=== PATIENT | male | born 1940 | race Caucasian/White ===

== ENCOUNTER → 2017-07-05 10:02 | Outpatient (CLI) | payer MEDICARE, SELFPAY | PROVIDERS: Family Provider Family Medicine; PCP Family Medicine; Visit Provider Family Medicine | DX: R10.13 Epigastric pain (principal) ==

== ENCOUNTER 2018-04-29 08:51 | Emergency (ER) | payer MEDICARE, SELFPAY ==
[2018-04-29 08:53] VITALS: BP 147/91; PULSE 95; RESP 18; TEMP 36.6; BMI 20.9
[2018-04-29 09:11] LABS: Bacteria 0 SEEN /hpf (None Seen); Mucous, Urine 0 SEEN /hpf (<or=2+); Squamous Epithelial Cells - UA 0 SEEN /hpf (0-5); White Blood Cells 0 SEEN /hpf (0-5)
[2018-04-29 09:14] LABS: Color, Urine Yellow (Yellow); Glucose, Dipstick Normal (Normal); Ketone-Dipstick Negative (Negative); Leukocyte Esterase-Dipstick Negative /ul (Negative); Nitrite-Dipstick Negative (Negative); Occult Blood-Urine 150 /ul (Negative); Protein-Dipstick Negative (Negative); Urine Bilirubin Dipstick Negative (Negative); Urine Clarity Sl. Cloudy (Clear); Urine Urobilinogen Normal (Normal)
[2018-04-29 09:21] LABS: Amorphous Sediment 1+; Red Blood Cells-Urine 10-25 SEEN /hpf (0-5)
--- NOTE | 2018-04-29 09:36 | ED.VISSUMM ---
- ER Visit Summary Date of Service: 04/29/18 Chief Complaint: Urine retention History of Present Illness: The patient is a 77 M who has not urinated since yesterday evening. He does have a history of enlarged prostate. Does not take medications. History of prostate or other surgeries. No recent bleeding. No dysuria, frequency, or urgency. No fevers or back pain. No GI symptoms. Physical Examination: Afebrile and vital signs unremarkable. Patient appears uncomfortable. Suprapubic region tender to palpation. No guarding or rebound. exam shows normal inspection. Test Results: Urinalysis unremarkable. Emergency Department Course and Treatment: Will catheter was placed by nursing on arrival. The patient passed copious yellow and clear urine and no blood or clots were noted. The patient had resolution of his symptoms. Urinalysis unremarkable. I suspect the symptoms are related to the patient's enlarged prostate history. He was placed on Flomax and referred to urology for follow-up. Return for any new or worsening issues. Treatment Plan: As above Disposition: Discharge Impression: 1. Acute urinary retention This note was generated with [employer] dictation software. It may contain incorrect words, spelling, and punctuation that were not noted in review of the chart prior to signing ED Disposition - Plan for ED Patient: Chief Complaint: Complaint Referrals: Fish Ferris DO [Primary Care Provider] -
--- NOTE | 2018-04-29 09:38 | ED.DEP ---
ED Disposition - Plan for ED Patient: Chief Complaint: Complaint Instructions: ED Catheter Care Will Prescriptions: Tamsulosin HCl [Flomax] 0.4 mg PO DAILY #7 cap Referrals: Dallas Key MD [STAFF PHYSICIAN] -
--- NOTE | 2018-04-29 09:52 | ED.RN ---
DISCHARGE INSTRUCTIONS GIVEN TO AND REVIEWED WITH PATIENT, PATIENT DENIES QUESTIONS OR CONCERNS AND VOICES UNDERSTANDING OF DISCHARGE INSTRUCTIONS. PT AMBULATES OUT OF ROOM WITHOUT DIFFICULTY.
== END 2018-04-29 09:53 | disposition home or self-care (01) ==
PROVIDERS: Emergency Provider Emergency Medicine; Family Provider Family Medicine; PCP Family Medicine
DX: R33.9 Retention of urine, unspecified (principal); E03.9 Hypothyroidism, unspecified; N40.0 Benign prostatic hyperplasia without lower urinary tract symptoms
CPT/HCPCS: 51702; 81001; 99283; J7030

== ENCOUNTER → 2018-04-30 15:42 | Outpatient (CLI) | payer MEDICARE, SELFPAY ==
[2018-04-29 08:53] VITALS: BMI 20.9
[2018-04-30 18:25] LABS: Free T3 1.6 pg/mL (2.18-3.98); T4 Free Direct 0.86 ng/dL (0.76-1.46)
== END ==
PROVIDERS: Family Provider Family Medicine; PCP Family Medicine; Visit Provider Family Medicine
DX: E03.9 Hypothyroidism, unspecified (principal)
CPT/HCPCS: 36415; 84439; 84443; 84481

== ENCOUNTER → 2018-05-09 06:54 | Outpatient (CLI) | payer MEDICARE, SELFPAY ==
[2018-04-29 08:53] VITALS: BMI 20.9
--- NOTE | 2018-05-09 06:59 | CT_ITS ---
STUDY: CT ABDOMEN AND PELVIS WITHOUT CONTRAST REASON FOR EXAM: Male, 77 years old. Urinary retention. Prostate enlargement. RADIATION DOSAGE (If Supplied By Facility): CTDIvol = ( 6.12 ) mGy, DLP = ( 301.25 ) mGycm TECHNIQUE: Transaxial images were obtained from the dome of the diaphragm to the symphysis pubis without oral contrast, and without intravenous contrast. Sagittal and coronal images were reconstructed. Individualized dose optimization techniques were used for this CT. COMPARISON: None. FINDINGS: Minimal increased markings along the posterior-lateral aspect of the right lower lobe suggestive of a atelectasis and/or scarring. There is a 2.8 cm x 2 cm bulla in the anterior medial aspect of the right lower lobe. The visualized portions of the heart are within normal limits. Normal liver. Normal gallbladder and extrahepatic biliary system. Normal spleen. Normal pancreas. Normal bilateral adrenal glands. Normal right kidney. Normal left kidney. There is a left retrocrural aortic renal vein. Normal visualized stomach. Normal small intestine. Normal colon. The appendix is visualized and appears normal. There is diffuse atherosclerotic calcification of the abdominal aorta, without a demonstrated aneurysm. Normal inferior vena cava. Normal retroperitoneum. Distended urinary bladder. A Will catheter is seen within the bladder. Diffuse bladder wall thickening. There is enlargement of the prostate. This measures 6.7 cm x 7.3 cm. Small bilateral inguinal hernias containing fat. There are degenerative changes of the visualized lumbar spine. CT/Abdomen/Pelvis without Cont IMPRESSION: Mildly enlarged prostate. Diffuse bladder wall thickening. Electronically Signed: August Puga MD at 13:08 EST Tel [phone], Service support ,
== END ==
PROVIDERS: Family Provider Family Medicine; PCP Family Medicine; Referring Provider Urology; Visit Provider Urology
DX: R33.8 Other retention of urine (principal); N40.1 Benign prostatic hyperplasia with lower urinary tract symptoms
CPT/HCPCS: 74176

== ENCOUNTER → 2018-05-14 10:33 | Outpatient (CLI) | payer MEDICARE, SELFPAY ==
[2018-04-29 08:53] VITALS: BMI 20.9
[2018-05-14 11:22] VITALS: BP 141/68; PULSE 81; RESP 16; TEMP 36.8; O2SAT 100; BMI 20.2
--- NOTE | 2018-05-14 16:04 | SDCEKG_ITS ---
Test Reason : Blood Pressure : / mmHG Vent. Rate : 074 BPM Atrial Rate : 074 BPM P-R Int : 140 ms QRS Dur : 092 ms QT Int : 400 ms P-R-T Axes : 080 013 064 degrees QTc Int : 444 ms Normal sinus rhythm Normal ECG Confirmed by FELISA SANDOVAL, LAI ([id number]), photographic editor STEVEN JACKSON ([id number]) on 05/18/2018 1:39:47 PM Referred By: Dallas Key Confirmed By:LAI ROBERTO MD
== END ==
PROVIDERS: Family Provider Family Medicine; PCP Family Medicine; Referring Provider Urology; Visit Provider Urology
DX: Z01.810 Encounter for preprocedural cardiovascular examination (principal)
CPT/HCPCS: 93005

== ENCOUNTER 2018-06-15 10:04 | Inpatient (IN) | payer MEDICARE, SELFPAY ==
[2018-05-15 15:49] VITALS: BMI 20.9
[2018-06-09 10:57] LABS: Mean Corp Hgb Conc 28.1 g/gl (32-36); Mean Corpuscular Volume 74.6 fL (80-94); Mean Platelet Vol. 10.5 fl (6.2-12.0); Platelet Count 454 K/mm3 (150-450); RBC Distribution Width CV 16.5 % (11.6-14.6); RBC Distribution Width SD 44.9 fl (35.1-43.9); Red Blood Count 4.29 M/mm3 (4.6-6.2); White Blood Count 11.9 K/mm3 (4.4-11.0)
[2018-06-09 10:59] LABS: Scan Indicated on CBC? Y/N YES- FLAGS NOTED
[2018-06-09 11:29] LABS: Thyroid Stim Hormone (TSH) 2.14 uIU/mL (0.358-3.74)
[2018-06-09 11:30] LABS: Differential Comment SCANNED
[2018-06-15] VITALS (17 sets, daily range): BP systolic 109–156; BP diastolic 56–76; PULSE 76–91; RESP 14–18; TEMP 36.2–37.2; O2SAT 93–99
--- NOTE | 2018-06-15 12:00 | PROST_PTH ---
PATIENT: DEEPTI CABRAL LOC: [facility] U#:[id number] AGE/SX: 77/M ROOM: [facility]324 RE06/15/[address]: Dr. Dallas Key MD : [id number] BED: 1 DIS: 06/18/2018 SPEC #: [id number] RECD: 06/15/18 16:04 STATUS: JOHNNY KATERIN #: [id number] JONATHAN: 06/15/18 12:[address]: Dallas Key DEPT: SURGICAL PATHOLOGY RECD BY: Enoch Luis ENTERED: 06/18/18 10:14 SP TYPE: PROSTATE OTHR DR: Dr. Fish Ferris, DO Tissues: Prostate, NOS Procedures: Surgery Specimen Level HEADER OPERATION: Laparoscopic robotic simple prostatectomy PRE-OP DIAGNOSIS: Benign prostatic hyperplasia with lower urinary tract symptoms, elevated prostate specific antigen, retention of urine TISSUE SUBMITTED: Prostate tissue MICROSCOPIC DIAGNOSIS Prostate, simple prostatectomy: Benign nodular hyperplasia, glandular and stromal types. Mild chronic inflammation. No evidence of malignancy. AM:howie 06/19/18 MICROSCOPIC DESCRIPTION Slides are reviewed. GROSS DESCRIPTION Received in fixative is one container labeled with the patient's name and designated prostate tissue. The specimen consists of a morcellated prostatic tissue (greater than 30 fragments) measuring in aggregate 12 x 12 x 4 cm and weighing 46 gm. Tissue grossly resembling seminal vesicles or vas deferens is not identified. Sections reveal lobulated white, rubbery cut surfaces. No distinct mass lesion is identified. Leather Belt Shaper sections are submitted in eight cassettes. / AM:howie 06/18/18 TC:5 CPT: 02636
[2018-06-15] MEDS: Cefazolin 2 GM in 0.9% Normal Saline 100 ML IV (12:31)
[2018-06-15] MEDS: Bupivacaine Mpf 0.5% 30 ML VIAL (15:43)
--- NOTE | 2018-06-15 15:51 | OP.PCM_ITS ---
Report of Operation Date of Procedure: 06/15/18 Pre-Operative Diagnosis: BPH with obstruction and urinary retention Post-Operative Diagnosis: Same Surgery/Procedure Performed:: Laparoscopic assisted robotic simple prostatectomy Description of Surgical Findings:: Indication this is a 77-year-old male has a prostate prior greater than 100 g in size very large obstructive prostate with a very large protruding prostate into the bladder he is developed urinary retention at this point been managed with a Will catheter he is on antibiotics for recent urinary tract infection today we plan to taken to surgery for a simple robotic assisted enucleation prostatectom 77-year-old male taken back to the operating room at the smooth induction of general anesthesia he was placed supine on the table the abdomen was shaved prepped and draped in usual sterile fashion made an incision above the umbilicus put a Veress needle into the peritoneal cavity and into inflated the peritoneum with CO2 gas I then placed my robot trocar right arm trocar left arm trocar variceal port and special education educational assistant trocar and suction trocar. Started off by inflating the bladder with 200 cc open up the bladder in the midline I then placed a Theodore needle through the lower abdomen to retract the bladder laterally open of the bladder some more I then identified a very large protruding prostate into the bladder went below this identify the right and left ureteral orifice cir cumferentially incised the bladder muscle attachments to the adenoma and then started off with the enucleation of the adenoma had a very large adenoma mostly on the right side compressing the urethra at the majority the large adenoma out significant some bleeding during this process and then as I piecemealed out the adenoma is a cath on bringing out more and more tissue until finally got to the base of the prostate had enucleated out all the adenomatous tissue from the prostate I then can perform the anastomosis running the suture from the urethra to the edges of the bladder mucosa bring down the bladder mucosa to the mucosa to the urethra this allowed the mucosa to come over the edges and also to prevent scar tissue from forming he had a nice wide open channel we then placed a 20 Frisian catheter into the bladder with 10 cc in the balloon and then we closed the bladder in 2 layers with 2-0 and 3-0 Vicryl after closing the bladder we then extracted the prostate adenoma through the Endo Catch bag through the umbilicus and then we closed our Sandro Caballero stitch of the 1012 trocar and then all the second particular stitches were closed incisions and dressings were placed patient's anesthetic was reversed I went spoke to the and let her know that the surgery was completed and the patient's catheter was irrigated and is taken back to the PACU good condition. Type of Anesthesia:: General Drains: NONE - Admit VTE Documentation VTE Present on Admission: No VTE Mechan Device Prophylaxis: SCD's
[2018-06-15 16:27] LABS: Hematocrit 26.3 % (40-54); Hemoglobin 7.5 g/dl (13.0-16.5); Mean Corp Hgb Conc 28.5 g/gl (32-36); Mean Corpuscular Hgb 21.1 pg (27.0-32.0); Mean Corpuscular Volume 74.1 fL (80-94); Platelet Count 399 K/mm3 (150-450); RBC Distribution Width CV 16.5 % (11.6-14.6); RBC Distribution Width SD 44.8 fl (35.1-43.9); Red Blood Count 3.55 M/mm3 (4.6-6.2); Scan Indicated on CBC? Y/N YES- FLAGS NOTED; White Blood Count 21.9 K/mm3 (4.4-11.0)
[2018-06-15 16:34] LABS: Anion Gap 9 (5-15); BUN 15 mg/dL (7-18); BUN/Creat Ratio 18.3 RATIO (10-20); Calcium,Total 7.4 mg/dL (8.5-10.1); Chloride 112 mmol/L (98-107); Creatinine, Serum 0.82 mg/dL (0.70-1.30); EST Glomerular Filtration Rate 97 mL/min (>60); Est Glom Filt Rate - Afr Amer 118 mL/min (>60); Estimated Creatinine Clearance 72.74 ml/min; Glucose 166 mg/dL (74-106); Potassium 4.3 mmol/L (3.5-5.1); Sodium Level 143 mmol/L (136-145)
--- NOTE | 2018-06-15 16:45 | PCM.PN.BLA ---
Progress Note patient started out with low Hgb. now post op 7.5 will need two units of PRBC. will transfuse.
[2018-06-15] MEDS: Ketorolac 15 MG/ML Vial IV ×2 (19:07→23:46)
[2018-06-15] MEDS: 0.45% Normal Saline 1,000 ML 150 ML IV (19:11)
[2018-06-15] MEDS: Cefazolin 1 GM/50 ML BAG IV (19:37)
[2018-06-15] MEDS: Docusate Sodium 100 MG Capsule PO (21:12)
[2018-06-16 03:05] VITALS: BP 143/73; PULSE 87; RESP 18; TEMP 36.6; O2SAT 99
[2018-06-16] MEDS: 0.45% Normal Saline 1,000 ML 150 ML IV ×4 (03:47→22:52)
[2018-06-16] MEDS: Cefazolin 1 GM/50 ML BAG IV (05:08)
[2018-06-16] MEDS: Ketorolac 15 MG/ML Vial IV ×4 (05:09→23:02)
[2018-06-16] MEDS: Morphine 2 MG/ML Syringe IV ×3 (05:20→13:52)
[2018-06-16 06:59] LABS: Hematocrit 28.7 % (40-54); Hemoglobin 8.6 g/dl (13.0-16.5); Mean Corpuscular Hgb 22.9 pg (27.0-32.0); Mean Corpuscular Volume 76.3 fL (80-94); Mean Platelet Vol. 10.7 fl (6.2-12.0); Platelet Count 362 K/mm3 (150-450); RBC Distribution Width CV 17.8 % (11.6-14.6); RBC Distribution Width SD 46.7 fl (35.1-43.9); Red Blood Count 3.76 M/mm3 (4.6-6.2); White Blood Count 14.5 K/mm3 (4.4-11.0)
[2018-06-16 07:00] LABS: Scan Indicated on CBC? Y/N NO
[2018-06-16 07:13] LABS: Anion Gap 7 (5-15); BUN 14 mg/dL (7-18); BUN/Creat Ratio 15.8 RATIO (10-20); Calcium,Total 7.2 mg/dL (8.5-10.1); Chloride 111 mmol/L (98-107); Creatinine, Serum 0.88 mg/dL (0.70-1.30); EST Glomerular Filtration Rate 89 mL/min (>60); Est Glom Filt Rate - Afr Amer 107 mL/min (>60); Estimated Creatinine Clearance 67.78 ml/min; Glucose 103 mg/dL (74-106); Potassium 4.7 mmol/L (3.5-5.1); Sodium Level 144 mmol/L (136-145)
[2018-06-16 08:40] VITALS: BP 120/68; PULSE 73; RESP 18; TEMP 37.2; O2SAT 98
[2018-06-16] MEDS: Docusate Sodium 100 MG Capsule PO (08:46)
[2018-06-16] MEDS: Magnesium Hydroxide 30 ML UDC 15 ML PO (08:50)
[2018-06-16] MEDS: Pantoprazole Sodium 20 MG Tablet PO (08:50)
--- NOTE | 2018-06-16 08:50 | PCM.PROGNOTE ---
Subjective: doing well had 2 units of blood post op not from bleeding, really started very low H/h b/f surgery - Physical Exam Vital Signs Temp Pulse Resp BP Pulse Ox 99.0 F 73 18 120/68 98 06/16/18 08:40 06/16/18 08:40 06/16/18 08:40 06/16/18 08:40 06/16/18 08:40 Oxygen Delivery Method Room Air Weight: 67.1 kg Body Mass Index (BMI) 20.0 Intake and Output for Last 24 Hours 06/14/18 06/15/18 06/16/18 23:59 23:59 23:59 Intake Total 3400 / 3400 1842 / 1842 Output Total 450 / 450 1425 / 1425 Balance 2950 / 2950 417 / 417 Laboratory Tests Past 24 Hrs 06/15/18 06/15/18 06/15/18 10:36 10:36 16:15 WBC 21.9 H RBC 3.55 L Hgb 7.5 L Hct 26.3 L MCV 74.1 L MCH 21.1 L MCHC 28.5 L RDW 16.5 H RDW Differential 44.8 H Plt Count 399 MPV 10.0 Differential Comment Sodium Potassium Chloride Carbon Dioxide Anion Gap BUN Creatinine Estim Creat Clear Calc Est GFR (MDRD) Af Amer Est GFR (MDRD) Non-Af BUN/Creatinine Ratio Glucose Calcium Blood Type O POSITIVE Antibody Screen NEGATIVE Crossmatch See Detail 06/15/18 06/16/18 06/16/18 16:15 06:30 06:30 WBC 14.5 H RBC 3.76 L Hgb 8.6 L Hct 28.7 L MCV 76.3 L MCH 22.9 L MCHC 30.0 L RDW 17.8 H RDW Differential 46.7 H Plt Count 362 MPV 10.7 Differential Comment Sodium 143 144 Potassium 4.3 4.7 Chloride 112 H 111 H Carbon Dioxide 22.0 26.0 Anion Gap 9 7 BUN 15 14 Creatinine 0.82 0.88 Estim Creat Clear Calc 72.74 67.78 Est GFR (MDRD) Af Amer 118 107 Est GFR (MDRD) Non-Af 97 89 BUN/Creatinine Ratio 18.3 15.8 Glucose 166 H 103 Calcium 7.4 L 7.2 L Blood Type Antibody Screen Crossmatch Medical Necessity - Tobacco Use Smoking Status: Former smoker Assessment/Plan doing well ambulate diet as robert home on monday
[2018-06-16] MEDS: 0.9% NaCl Peripheral Flush Adult/Peds IV ×5 (09:06→23:02)
[2018-06-16] MEDS: Ondansetron 4 MG/2 ML Vial IV (10:16)
--- NOTE | 2018-06-16 11:20 | NURSING ---
PTS PENIS SWOLLEN SINCE 0900 WITH LAST TREVINO FLUSH. DR MULLEN NOTIFIED. ORDERED TO ELEVATE/MONITOR SWELLING. ALSO NOTIFIED MD OF PT C/O GAS PAINS, ATTEMPTED TO AMBULATE BUT BECAME NAUSEATED W/EMESIS. NEW ORDER FOR DULCOLAX SUPP X1.
[2018-06-16] MEDS: Bisacodyl 10 MG Suppository RECTAL (11:47)
[2018-06-16 13:45] VITALS: BP 130/68; PULSE 72; RESP 18; TEMP 37; O2SAT 98
[2018-06-16 19:57] VITALS: BP 115/67; PULSE 88; RESP 18; TEMP 36.9; O2SAT 97
[2018-06-17 03:20] VITALS: BP 114/55; PULSE 67; RESP 16; TEMP 36.9; O2SAT 96
[2018-06-17] MEDS: 0.45% Normal Saline 1,000 ML 150 ML IV (05:06)
[2018-06-17] MEDS: Ketorolac 15 MG/ML Vial IV ×3 (05:08→18:21)
[2018-06-17] MEDS: 0.9% NaCl Peripheral Flush Adult/Peds IV ×3 (05:09→18:21)
[2018-06-17] MEDS: Pantoprazole Sodium 20 MG Tablet PO (10:10)
[2018-06-17 10:26] VITALS: BP 123/49; PULSE 72; RESP 18; TEMP 36.9; O2SAT 100
[2018-06-17 16:24] VITALS: BP 114/64; PULSE 64; RESP 18; TEMP 37; O2SAT 100
[2018-06-17 20:14] VITALS: BP 105/53; PULSE 75; RESP 16; TEMP 36.9; O2SAT 96
[2018-06-18] MEDS: 0.9% NaCl Peripheral Flush Adult/Peds IV ×2 (00:07→06:03)
[2018-06-18] MEDS: Ketorolac 15 MG/ML Vial IV ×2 (00:07→06:03)
[2018-06-18 02:22] VITALS: BP 115/66; PULSE 71; RESP 16; TEMP 36.9; O2SAT 97
[2018-06-18 07:25] VITALS: BP 140/69; PULSE 68; RESP 18; TEMP 37.2; O2SAT 100
--- NOTE | 2018-06-18 07:28 | PCM.DC.URO ---
Discharge Diet: Light diet - advance as tolerated Discharge Activity: May Not Drive Call your doctor if your incision/area has: Continuous Slow Oozing, Sudden Increased Bleeding, Increased Pain/ Swelling, Increased Redness, Foul Smelling Discharge, Swelling at the incision site Call your doctor if you observe: Fever of 101 or Higher Additional Instructions: keep taking antibiotics. Allergies/Adverse Reactions: Allergies Penicillins Allergy (Verified 06/08/18 13:13) Unknown REDNEES AT INJECTION SITE, RASH Medications to take at Discharge Levothyroxine Sodium [Synthroid] 150 mcg PO DAILY 04/29/18 Ascorbic Acid [Vitamin C] 500 mg PO DAILY@0800 05/14/18 Cholecalciferol (VIT D3) [Vitamin D] 5,000 unit PO DAILY 05/14/18 Cyanocobalamin [Vitamin B12] 500 mcg PO DAILY@0800 05/14/18 Iodine/Potassium Iodide [Lugols] 15 ml TOPICAL DAILY 05/14/18 [place] Gum 1 tab PO DAILY 05/14/18 Multivitamins,Therapeutic [Multivitamin] 1 tablet PO DAILY 05/14/18 Prostamax 1 tab PO DAILY 05/14/18 [place] Prostate Health Formul 1 tab PO DAILY 05/14/18 Docusate Sodium [Colace] 100 mg PO BID #20 cap 06/18/18 Hydrocodone/Acetaminophen [[place] 5-325 Tablet] 1 ea PO Q4H PRN PRN 5 Days #14 tab 06/18/18 Orders to be completed after discharge: CBC-Complete Blood Cnt No Diff Time Frame: 06/08/18, Location: Laboratory Thyroid Stim Hormone (TSH) Time Frame: 06/08/18, Location: Laboratory Primary Care Physician: Fish Ferris DO [Primary Care Provider] - Test Results: Test results from this visit will be discussed in further detail at your follow-up appointment, if applicable. Please Follow Up With: Dallas Key MD When: please call to make an appointment- next monday to get catheter out.
--- NOTE | 2018-06-18 07:32 | DS.PCM_ITS ---
Discharge Date and Diagnosis Date of Admission: 06/15/18 Date of Discharge: 06/18/18 Hospital Course and Treatment Operations: - - simple prostatectomy Procedures: None Summary of Care Provided: The patient is a 77 year old male with BPH and retention s/p simple prostatectomy, in [facility] mostly for weather home with poole, follow up in 1 week. - Physical Exam General: Alert, Oriented x3, Cooperative HEENT: Atraumatic, PERRLA, EOMI, Normocephalic Neck: Supple, No JVD, Negative Carotid Bruits Lungs: Clear to auscultation, Normal air movement Cardiovascular: Regular rate, No murmurs Abdomen: Bowel Sounds Present, Soft, Non Tender Extremities: No edema, Capillary Refill Less than 3 Seconds Skin: No rashes, No breakdown Musculoskeletal: No Tenderness to Palpation of Joints or Extremities Neurological: Cranial nerves II-XII grossly intact Psych/Mental Status: Normal Affect, Appropriate Vital Signs Temp Pulse Resp BP Pulse Ox 98.9 F 68 18 140/69 H 100 06/18/18 07:25 06/18/18 07:25 06/18/18 07:25 06/18/18 07:25 06/18/18 07:25 Oxygen Delivery Method Room Air Weight: 67.1 kg Body Mass Index (BMI) 20.0 Intake and Output for Last 24 Hours 06/16/18 06/17/18 06/18/18 23:59 23:59 23:59 Intake Total 5902 / 5902 2507 / 2507 740 / 740 Output Total 3825 / 3825 2875 / 2875 700 / 700 Balance 7 / 207 -368 / -368 40 / 40 Discharge Diet: Light diet - advance as tolerated Discharge Activity: May Not Drive Call your doctor if your incision/area has: Continuous Slow Oozing, Sudden Increased Bleeding, Increased Pain/ Swelling, Increased Redness, Foul Smelling Discharge, Swelling at the incision site Call your doctor if you observe: Fever of 101 or Higher Home Medications: Medications to take at Discharge Levothyroxine Sodium [Synthroid] 150 mcg PO DAILY 04/29/18 Ascorbic Acid [Vitamin C] 500 mg PO DAILY@0800 05/14/18 Cholecalciferol (VIT D3) [Vitamin D] 5,000 unit PO DAILY 05/14/18 Cyanocobalamin [Vitamin B12] 500 mcg PO DAILY@0800 05/14/18 Iodine/Potassium Iodide [Lugols] 15 ml TOPICAL DAILY 05/14/18 [place] Gum 1 tab PO DAILY 05/14/18 Multivitamins,Therapeutic [Multivitamin] 1 tablet PO DAILY 05/14/18 Prostamax 1 tab PO DAILY 05/14/18 [facility] Prostate Health Formul 1 tab PO DAILY 05/14/18 Docusate Sodium [Colace] 100 mg PO BID #20 cap 06/18/18 Hydrocodone/Acetaminophen [[place] 5-325 Tablet] 1 ea PO Q4H PRN PRN 5 Days #14 tab 06/18/18 Following Prescrptions Were Given to Patient: Hydrocodone/Acetaminophen [[place] 5-325 Tablet] 1 ea PO Q4H PRN PRN 5 Days #14 tab PRN Reason: Pain Docusate Sodium [Colace] 100 mg PO BID #20 cap Other Amb Orders: CBC-Complete Blood Cnt No Diff Time Frame: 06/08/18, Location: Laboratory Thyroid Stim Hormone (TSH) Time Frame: 06/08/18, Location: Laboratory Primary Care Physician: Fish Ferris DO [Primary Care Provider] - Please Follow Up With: Dallas Key MD When: please call to make an appointment- next monday to get catheter out. Additional Instructions: keep taking antibiotics. Medical Necessity - Tobacco Use Smoking Status: Former smoker Meaningful Use Info Meaningful Use Diagnoses (Choose all that apply): None applicable
--- NOTE | 2018-06-18 10:15 | PCA ---
Removed both IVs from pt per Lalita HANEY's request. Pt. tolerated well and denies needs at this time.
== END 2018-06-18 10:40 | disposition home or self-care (01) | DRG 707 ==
LOC: ACINP 10:08 → MS3 12:14
PROVIDERS: Admitting Provider Urology; Family Provider Family Medicine; PCP Family Medicine; Referring Provider Urology; Visit Provider Urology
PROC: 0VT04ZZ Resection of Prostate, Percutaneous Endoscopic Approach (ICD-10-PCS; CPT 55867; principal; 2018-06-15 11:40)
DX: N40.1 Benign prostatic hyperplasia with lower urinary tract symptoms (principal); N13.8 Other obstructive and reflux uropathy; R33.8 Other retention of urine; D64.9 Anemia, unspecified
CPT/HCPCS: 36415; 80048; 84443; 85027; 86850; 86900; 86920; 88309; J7040; J7120; P9016; A4216; J2405

== ENCOUNTER → 2018-07-05 11:16 | Outpatient (CLI) | payer MEDICARE, SELFPAY ==
[2018-05-15 15:49] VITALS: BMI 20.9
[2018-07-05 12:56] LABS: Free T3 2.9 pg/mL (2.18-3.98); Thyroid Stim Hormone (TSH) 0.18 uIU/mL (0.358-3.74)
== END ==
PROVIDERS: Family Provider Family Medicine; PCP Family Medicine; Visit Provider Family Medicine
DX: E03.9 Hypothyroidism, unspecified (principal)
CPT/HCPCS: 84439; 84443; 84481

== ENCOUNTER → 2018-09-17 09:46 | Outpatient (CLI) | payer MEDICARE, SELFPAY ==
[2018-09-17 12:40] LABS: PSA,Total- Diagnostic 2.89 ng/mL (0.0-4.0)
== END ==
PROVIDERS: Family Provider Family Medicine; PCP Family Medicine; Visit Provider Family Medicine
DX: E03.9 Hypothyroidism, unspecified (principal); R97.20 Elevated prostate specific antigen [PSA]
CPT/HCPCS: 36415; 84153; 84439; 84443; 84481

== ENCOUNTER → 2018-11-21 14:30 | Outpatient (CLI) | payer MEDICARE, SELFPAY ==
[2018-11-21 16:03] LABS: Free T3 2.5 pg/mL (2.18-3.98); T4 Free Direct 1.15 ng/dL (0.76-1.46); Thyroid Stim Hormone (TSH) 1.83 uIU/mL (0.358-3.74)
== END ==
PROVIDERS: Family Provider Family Medicine; PCP Family Medicine; Visit Provider Family Medicine
DX: E03.9 Hypothyroidism, unspecified (principal)
CPT/HCPCS: 36415; 84439; 84443; 84481

== ENCOUNTER → 2019-08-01 11:10 | Outpatient (CLI) | payer MEDICARE, SELFPAY ==
[2019-08-01 12:41] LABS: PSA,Total- Diagnostic 4.25 ng/mL (0.0-4.0); T4 Free Direct 1.43 ng/dL (0.76-1.46)
[2019-08-02 23:52] LABS: PSA, Free 0.83 ng/mL; PSA, Free % 20.2 % (.); PSA, Total Ultrasensitive 4.1 ng/mL (0.0-4.0)
== END ==
PROVIDERS: PCP Family Medicine; Visit Provider Family Medicine
DX: E03.9 Hypothyroidism, unspecified (principal); R97.20 Elevated prostate specific antigen [PSA]
CPT/HCPCS: 36415; 84153; 84154; 84439; 84443

== ENCOUNTER → 2022-06-30 | Outpatient (CLI) | payer MEDICARE, SELFPAY ==
[2022-06-30 12:25] LABS: Absolute Lymphocyte Count 1.58 X10^3/uL (0.83-4.51); Absolute Neutrophil Count 4.2 X10^3/uL (2.0-7.7); Basophil# 0.07 X10^3/uL; Basophil% 1.1 % (0-1); Eosinophil# 0.09 X10^3/uL; Eosinophils% 1.4 % (0-5); Hematocrit 31.6 % (40-54); Hemoglobin 8.4 g/dL (13.0-16.5); Lymphocyte # 1.58 X10^3/ul (0.83-4.51); Mean Corp Hgb Conc 26.6 g/dL (32-36); Mean Corpuscular Hgb 21.3 pg (27.0-32.0); Mean Corpuscular Volume 80.2 fL (80-94); Mean Platelet Vol. 11.5 fl (6.2-12.0); Monocyte# 0.61 X10^3/uL; Monocyte% 9.3 % (0-10); NRBC Flagged by Analyzer 0 % (0-5); Neutrophil % 63.9 % (47-70); POSITIVE MORPHOLOGY YES; Platelet Count 355 K/mm3 (150-450); RBC Distribution Width CV 23.9 % (11.6-14.6); RBC Distribution Width SD 67.4 fl (35.1-43.9); Red Blood Count 3.94 M/mm3 (4.6-6.2); White Blood Count 6.6 K/mm3 (4.4-11.0)
[2022-06-30 12:30] LABS: Differential Indicated SCAN CRITERIA MET
[2022-06-30 12:50] LABS: Anisocytosis 2+; Hypochromasia 2+; Ovalocyte 1+
[2022-06-30 12:51] LABS: Polychromasia RARE
[2022-06-30 13:18] LABS: Ferritin 12 ng/mL (26-388); Iron 14 ug/dL (65-175); T4 Free Direct 1.62 ng/dL (0.76-1.46); Thyroid Stim Hormone (TSH) 0.01 uIU/mL (0.358-3.74)
[2022-06-30 16:54] LABS: Xtra Tube EP Lab EXTRA TUBE
== END | disposition home or self-care (01) ==
LOC: BFHLAB 08:49
PROVIDERS: PCP Family Medicine; Visit Provider Family Medicine
DX: D64.9 Anemia, unspecified (principal); E03.9 Hypothyroidism, unspecified
CPT/HCPCS: 36415; 82728; 83540; 84439; 84443; 85025

== ENCOUNTER → 2022-10-07 | Outpatient (CLI) | payer MEDICARE, SELFPAY ==
[2022-10-07 15:28] LABS: Absolute Lymphocyte Count 1.56 X10^3/uL (0.83-4.51); Absolute Neutrophil Count 4.2 X10^3/uL (2.0-7.7); Basophil# 0.06 X10^3/uL; Basophil% 0.9 % (0-1); Eosinophil# 0.16 X10^3/uL; Eosinophils% 2.4 % (0-5); Hematocrit 41.2 % (40-54); Hemoglobin 12.5 g/dL (13.0-16.5); Lymphocyte # 1.56 X10^3/ul (0.83-4.51); Lymphocyte % 23.6 % (19-41); Mean Corp Hgb Conc 30.3 g/dL (32-36); Mean Corpuscular Hgb 29.6 pg (27.0-32.0); Mean Corpuscular Volume 97.4 fL (80-94); Mean Platelet Vol. 11.5 fl (6.2-12.0); Monocyte# 0.63 X10^3/uL; Monocyte% 9.5 % (0-10); NRBC Flagged by Analyzer 0 % (0-5); Neutrophil # 4.18 X10^3/uL (2.7-7.7); Neutrophil % 63.1 % (47-70); Platelet Count 296 K/mm3 (150-450); RBC Distribution Width CV 14.9 % (11.6-14.6); RBC Distribution Width SD 52.8 fl (35.1-43.9); Red Blood Count 4.23 M/mm3 (4.6-6.2); White Blood Count 6.6 K/mm3 (4.4-11.0)
[2022-10-07 15:45] LABS: Vitamin B12 873 pg/mL (211-911)
[2022-10-07 15:57] LABS: Ferritin 73 ng/mL (26-388); Iron 41 ug/dL (65-175); T4 Free Direct 1.36 ng/dL (0.76-1.46); Thyroid Stim Hormone (TSH) 0.39 uIU/mL (0.358-3.74)
== END | disposition home or self-care (01) ==
LOC: BFHLAB 13:33
PROVIDERS: PCP Family Medicine; Referring Provider Family Medicine; Visit Provider Family Medicine
DX: E03.9 Hypothyroidism, unspecified (principal); D50.9 Iron deficiency anemia, unspecified
CPT/HCPCS: 36415; 82607; 82728; 83540; 84439; 84443; 85025

== ENCOUNTER → 2024-04-05 | Outpatient (CLI) | payer MEDICARE, SELFPAY ==
[2024-04-05 17:26] LABS: Absolute Lymphocyte Count 1.85 X10^3/uL (0.83-4.51); Absolute Neutrophil Count 4.8 X10^3/uL (2.0-7.7); Basophil# 0.05 X10^3/uL; Basophil% 0.7 % (0-1); Eosinophil# 0.14 X10^3/uL; Eosinophils% 1.9 % (0-5); Hematocrit 44.3 % (40-54); Hemoglobin 14.7 g/dL (13.0-16.5); Lymphocyte # 1.85 X10^3/ul (0.83-4.51); Lymphocyte % 24.6 % (19-41); Mean Corp Hgb Conc 33.2 g/dL (32-36); Mean Corpuscular Hgb 31.1 pg (27.0-32.0); Mean Corpuscular Volume 93.7 fL (80-94); Mean Platelet Vol. 11.5 fl (6.2-12.0); Monocyte# 0.67 X10^3/uL; Monocyte% 8.9 % (0-10); NRBC Flagged by Analyzer 0 % (0-5); Neutrophil # 4.77 X10^3/uL (2.7-7.7); Neutrophil % 63.5 % (47-70); Platelet Count 269 K/mm3 (150-450); RBC Distribution Width CV 13.5 % (11.6-14.6); RBC Distribution Width SD 46.8 fl (35.1-43.9); Red Blood Count 4.73 M/mm3 (4.6-6.2); White Blood Count 7.5 K/mm3 (4.4-11.0)
[2024-04-05 17:47] LABS: AST(SGOT) 20 U/L (15-37); Alanine Aminotransfer ALT/SGPT 27 U/L (16-61); Albumin, Serum 3.3 g/dL (3.2-5.0); Alkaline Phosphatase 73 U/L (45-117); Anion Gap 5 (5-15); BUN 17 mg/dL (7-18); BUN/Creat Ratio 18.6 RATIO (10-20); Calcium,Total 8.8 mg/dL (8.5-10.1); Chloride 110 mmol/L (98-107); Creatinine, Serum 0.91 mg/dL (0.70-1.30); EST Glomerular Filtration Rate 84 mL/min (>60); Est Glom Filt Rate - Afr Amer 102 mL/min (>60); Globulin 3.2 g/dL (2.2-4.2); Glucose 97 mg/dL (74-106); Potassium 3.9 mmol/L (3.5-5.1); Protein, Total 6.5 g/dL (6.4-8.2); Sodium Level 142 mmol/L (136-145)
== END | disposition home or self-care (01) ==
LOC: BFHLAB 15:53
PROVIDERS: PCP Family Medicine; Referring Provider Family Medicine; Visit Provider Family Medicine
DX: Z51.81 Encounter for therapeutic drug level monitoring (principal); E03.9 Hypothyroidism, unspecified; D64.9 Anemia, unspecified
CPT/HCPCS: 36415; 80053; 84439; 84443; 85025

== ENCOUNTER → 2025-01-29 | Outpatient (CLI) | payer MEDICARE, SELFPAY ==
[2025-01-29 13:18] LABS: Anion Gap 10 (5-15); BUN 16 mg/dL (4-19); BUN/Creat Ratio 16.2 RATIO (10-20); Calcium,Total 9.6 mg/dL (7.6-11.0); Carbon Dioxide 25.8 mmol/L (21.0-32.0); Chloride 105 mmol/L (98-108); Glucose 99 mg/dL (70-99); Potassium 5.0 mmol/L (3.3-5.1)
== END | disposition home or self-care (01) ==
LOC: BFHLAB 10:40
PROVIDERS: PCP Family Medicine; Visit Provider Family Medicine
DX: Z01.818 Encounter for other preprocedural examination (principal); E03.9 Hypothyroidism, unspecified
CPT/HCPCS: 36415; 80048; 84439; 84443